=== PATIENT | male | born 1960 | race Caucasian/White ===

== ENCOUNTER 2023-12-17 07:26 | Observation (INO) ==
[~2023-12-17 07:26] MED LIST: Lidocaine 2% PF 5 ML VIAL ONE; Midazolam 2 mg/2 ml VIAL 1 mg/ml 2 ml VIAL (2 mg) ONE; NS 0.45% 1000 ml BAG 1,000 ML IV SCH; Naloxone 0.4 mg VIAL 0.4 mg/ml 1 ml VIAL IV PRN; Ondansetron 4 mg VIAL 2 MG/ML 2 ml VIAL IV PRN; Propofol 0 MG/0 ML BTL ONE; fentaNYL 250 mcg/5 ml 50 MCG/ML 5 ml VIAL (250 MCG) ONE
[2023-12-17] MEDS ORDERED: ceFAZolin 2 GM PREMIX 2 GM/50 ML BAG ONE (07:51)
[2023-12-17] MEDS ORDERED: Tranexamic Acid 1 GM/100ML BAG 2,000 MG/200 ML BAG IV ONE (07:52)
[2023-12-17] MEDS ORDERED: fentaNYL 100 mcg/2 ml 50 MCG/ML VIAL ONE ×2 (08:05→13:24)
[2023-12-17] MEDS ORDERED: Midazolam 2 mg/2 ml VIAL 1 mg/ml 2 ml VIAL (2 mg) ONE (08:05)
[2023-12-17] MEDS ORDERED: Propofol 10 MG/ML 20 ML BTL ONE (08:10)
[2023-12-17 08:22] LABS: Rapid COVID-19 Molecular Undetected (Undetected)
[2023-12-17] MEDS: Buffered Lidocaine 1% SYRIN 1 ml INTRADERM ONE (08:26)
[2023-12-17] MEDS: Lactated Ringers 1000 ml BAG 1,000 ML IV SCH ×2 (08:27→17:20)
[2023-12-17] MEDS ORDERED: ROPIVACAINE 5 MG/ML 30 ML BTL (0.5%) ONE (08:58)
[2023-12-17] MEDS ORDERED: Rocuronium 50 mg VIAL 10 mg/ml 5 ml VIAL (50 mg) ONE ×2 (09:06→11:14)
[2023-12-17] MEDS ORDERED: Dexamethasone IV 4 MG/ML VIAL 1 ml VIAL ONE (11:16)
[2023-12-17] MEDS ORDERED: Ondansetron 4 mg VIAL 2 MG/ML 2 ml VIAL ONE (11:16)
[2023-12-17] MEDS ORDERED: HYDROmorphone 0.5 MG/0.5 ML SYRINGE ONE ×2 (11:16→12:01)
[2023-12-17] MEDS ORDERED: Esmolol 10 MG/ML 10 ML (100 mg) IV ONE (11:36)
[2023-12-17] MEDS ORDERED: Ondansetron ODT 4 mg TAB 4 MG TAB PO PRN (13:19)
[2023-12-17] MEDS ORDERED: Lactulose 30 ml UDC PO PRN (13:19)
[2023-12-17] MEDS ORDERED: Magnesium Hydroxide LIQ 30 ML UDC PO PRN (13:19)
[2023-12-17] MEDS ORDERED: Ondansetron 4 mg VIAL 2 MG/ML 2 ml VIAL IV PRN (13:19)
[2023-12-17] MEDS ORDERED: Morphine 2 MG/ML SYRINGE IV PRN (13:19)
[2023-12-17] MEDS ORDERED: Calcium Carb (TUMS) 500 mg CHEW TAB PO PRN (13:19)
[2023-12-17] MEDS: fentaNYL 100 mcg/2 ml 50 MCG/ML VIAL IV PRN (13:28)
[2023-12-17] MEDS ORDERED: Acetaminophen IV 1 GM/100ML 1,000 MG/100 ML BAG IV ONE (14:02)
[2023-12-17] MEDS: Acetaminophen IV 1 GM/100ML 1,000 MG/100 ML BAG IV ONE (14:06)
[2023-12-17] MEDS: ceFAZolin 2 GM in NS PREMIX 2 GM/100 ML BAG IVPB SCH (22:54)
[2023-12-17] MEDS: Magnesium Hydroxide LIQ 30 ML UDC PO SCH (22:56)
[2023-12-18 06:30] LABS: Hematocrit 38.1 % (38-53); Hemoglobin 12.9 g/dL (13.2-16.3); Mean Platelet Volume 7.2 fL (7.5-11.2); Platelet Count 292 10^3/uL (150-450)
[2023-12-18 07:07] LABS: Calcium 8.9 mg/dL (8.6-10.3); Creatinine, Serum 1.17 mg/dL (0.67-1.17); Potassium 4.8 mmol/L (3.5-5.0); eGFR CKD-EPI 70.9 (>60)
[2023-12-18] MEDS: Vitamin THERAPEUTIC TAB PO SCH (08:57)
[2023-12-18 10:13] VITALS: BP 122/73
== END 2023-12-18 14:25 | disposition home or self-care (01) ==
LOC: INTOOBSV 07:26 → AA 07:26 → SSU 13:19
PROVIDERS: ADMIT Orthopaedic Surgery Adult Reconstructive Orthopaedic Surgery; ATTEND Orthopaedic Surgery Adult Reconstructive Orthopaedic Surgery

== ENCOUNTER 2024-04-20 07:44 | Observation (INO) ==
[~2024-04-20 07:44] MED LIST changes: -Lidocaine 2% PF 5 ML VIAL ONE; +Metoclopramide 5 MG/ML VIAL (10 mg) IV PRN; -Midazolam 2 mg/2 ml VIAL 1 mg/ml 2 ml VIAL (2 mg) ONE; -Propofol 0 MG/0 ML BTL ONE; -fentaNYL 250 mcg/5 ml 50 MCG/ML 5 ml VIAL (250 MCG) ONE
[2024-04-20] MEDS ORDERED: fentaNYL 250 mcg/5 ml 50 MCG/ML 5 ml VIAL (250 MCG) ONE (08:15)
[2024-04-20] MEDS ORDERED: fentaNYL 100 mcg/2 ml 50 MCG/ML VIAL ONE ×4 (08:15→13:56)
[2024-04-20] MEDS ORDERED: Propofol 0 MG/0 ML BTL ONE (08:15)
[2024-04-20] MEDS ORDERED: Lidocaine 2% PF 5 ML VIAL ONE (08:15)
[2024-04-20] MEDS ORDERED: Midazolam 2 mg/2 ml VIAL 1 mg/ml 2 ml VIAL (2 mg) ONE (08:16)
[2024-04-20] MEDS ORDERED: Scopolamine 1 mg/72hr PATCH ONE (08:18)
[2024-04-20] MEDS ORDERED: ceFAZolin 2 GM PREMIX 2 GM/50 ML BAG ONE (08:18)
[2024-04-20] MEDS ORDERED: Tranexamic Acid 1 GM/100ML BAG 2,000 MG/200 ML BAG IV ONE (08:18)
[2024-04-20] MEDS: Lactated Ringers 1000 ml BAG 1,000 ML IV SCH ×2 (08:22→15:45)
[2024-04-20] MEDS: Scopolamine 1 mg/72hr PATCH TRANSDERM ONE (08:22)
[2024-04-20 08:23] LABS: Rapid COVID-19 Molecular Undetected (Undetected)
[2024-04-20] MEDS ORDERED: ROPIVACAINE 5 MG/ML 30 ML BTL (0.5%) ONE (09:13)
[2024-04-20] MEDS ORDERED: Rocuronium 50 mg VIAL 10 mg/ml 5 ml VIAL (50 mg) ONE ×2 (10:22→11:39)
[2024-04-20] MEDS ORDERED: HYDROmorphone 0.5 MG/0.5 ML SYRINGE ONE ×2 (10:42→12:17)
[2024-04-20] MEDS ORDERED: Propofol 10 MG/ML 20 ML BTL ONE (11:10)
[2024-04-20] MEDS ORDERED: Ondansetron 4 mg VIAL 2 MG/ML 2 ml VIAL IV PRN (13:56)
[2024-04-20] MEDS ORDERED: Morphine 2 MG/ML SYRINGE IV PRN (13:56)
[2024-04-20] MEDS ORDERED: Calcium Carb (TUMS) 500 mg CHEW TAB PO PRN (13:56)
[2024-04-20] MEDS ORDERED: Ondansetron ODT 4 mg TAB 4 MG TAB PO PRN (13:56)
[2024-04-20] MEDS ORDERED: Magnesium Hydroxide LIQ 30 ML UDC PO PRN (13:56)
[2024-04-20] MEDS ORDERED: Lactulose 30 ml UDC PO PRN (13:56)
[2024-04-20] MEDS: fentaNYL 100 mcg/2 ml 50 MCG/ML VIAL IV PRN (13:59)
[2024-04-20] MEDS: Buffered Lidocaine 1% SYRIN 1 ml INTRADERM ONE (17:11)
[2024-04-20] MEDS: Acetaminophen IV 1 GM/100ML 1,000 MG/100 ML BAG IV ONE (17:11)
[2024-04-20] MEDS: ceFAZolin 2 GM PREMIX 2 GM/50 ML BAG IV SCH (18:29)
[2024-04-20] MEDS: Magnesium Hydroxide LIQ 30 ML UDC PO SCH (21:18)
[2024-04-21 06:33] LABS: Hematocrit 38.6 % (38-53); Hemoglobin 12.9 g/dL (13.2-16.3); Mean Platelet Volume 7.2 fL (7.5-11.2); Platelet Count 300 10^3/uL (150-450)
[2024-04-21 07:37] LABS: Calcium 8.8 mg/dL (8.6-10.3); Creatinine, Serum 0.92 mg/dL (0.67-1.17); Potassium 4.7 mmol/L (3.5-5.0); eGFR CKD-EPI 94.6 (>60)
[2024-04-21] MEDS: Vitamin THERAPEUTIC TAB PO SCH (08:24)
[2024-04-21 09:32] VITALS: BP 125/85
== END 2024-04-21 13:20 | disposition home or self-care (01) ==
LOC: SSU 07:44 → OR 07:44
PROVIDERS: ADMIT Orthopaedic Surgery Adult Reconstructive Orthopaedic Surgery; ATTEND Orthopaedic Surgery Adult Reconstructive Orthopaedic Surgery